=== PATIENT | female | born 1980 | race Native Hawaiian/Other Pacific Islander ===

== ENCOUNTER 2018-01-20 08:43 | Outpatient (CLI) | payer OTHER | END 2018-01-20 23:53 | disposition home or self-care (01) | LOC: LABW 08:43 | DX: R19.7 Diarrhea, unspecified (principal) | CPT/HCPCS: 82272; 87015; 87045; 87205; 87324; 87328; 87329; 87449; 87899 ==

== ENCOUNTER 2018-06-04 15:04 | Outpatient (CLI) | payer OTHER | END 2018-06-04 19:18 | disposition home or self-care (01) | LOC: LABW 15:04 | DX: K51.90 Ulcerative colitis, unspecified, without complications (principal); K91.850 Pouchitis | CPT/HCPCS: 83993; 87324; 87449 ==

== ENCOUNTER 2021-12-30 14:11 | Outpatient (CLI) | payer OTHER | END 2021-12-30 19:01 | disposition home or self-care (01) | LOC: US 14:11 | PROVIDERS: ATTEND Internal Medicine | DX: M79.602 Pain in left arm (principal); R60.0 Localized edema ==

== ENCOUNTER 2022-03-31 12:21 | Outpatient (CLI) | payer OTHER | END 2022-03-31 19:41 | disposition home or self-care (01) | LOC: RAD 12:21 | PROVIDERS: ATTEND Internal Medicine | DX: M25.511 Pain in right shoulder (principal); R07.89 Other chest pain ==